=== PATIENT | female | born 1945 | race Caucasian/White ===

== ENCOUNTER 2022-04-10 07:47 | Outpatient (CLI) | payer OTHER | END 2022-04-10 15:25 | disposition home or self-care (01) | LOC: MRI 07:47 | PROVIDERS: ATTEND Internal Medicine Geriatric Medicine | DX: M46.92 Unspecified inflammatory spondylopathy, cervical region (principal); M54.12 Radiculopathy, cervical region | CPT/HCPCS: 72141 ==